=== PATIENT | male | born 1995 | race Two or more races ===

== ENCOUNTER 2017-05-30 16:41 | Emergency (ER) | payer SELFPAY ==
[~2017-05-30] VITALS: Ht 167.6 cm; Wt 74.8 kg
[2017-05-30 17:04] VITALS: BP 138/77
[2017-05-30] MEDS ORDERED: TDAP [DIPH/PERTUSSIS/TET] 0.5 ML VIAL IM ONE ×2 (17:17→18:00)
== END 2017-05-30 17:43 | disposition home or self-care (01) ==
LOC: ER 16:47
DX: S61.301A Unspecified open wound of left index finger with damage to nail, initial encounter (principal); W45.8XXA Other foreign body or object entering through skin, initial encounter; Y93.89 Activity, other specified; Y92.89 Other specified places as the place of occurrence of the external cause; Y99.0 Civilian activity done for income or pay
CPT/HCPCS: 90471; 90715; 99283; A4606; A6402; Z7610